=== PATIENT | female | born 1950 | race Caucasian/White ===

== ENCOUNTER 2016-05-09 09:13 | Day surgery (SDC) | payer BC ==
--- NOTE | ~2016-05-09 | OP ---
Record Of Operation [facility] [address] [place]. [address] NAME: DANA PARIKH : 54 STATUS : [facility]#: [id number] AGE: 66 ADM/REG DATE : 05/09/16 MR#: [id number] REPORT SERV DATE: 05/11/16 DICTATED BY: IRIS GUERRERO DATE: 05/11/16 REPORT STATUS : Draft TRANSCRIBED BY: RIDGE DATE: 05/11/16 DATE OF PROCEDURE: 05/09/2016 PREOPERATIVE DIAGNOSIS: Surgical absence of the breast. POSTOPERATIVE DIAGNOSIS: Surgical absence of the breast. PROCEDURE: Bilateral nipple reconstructions. INDICATIONS AND FINDINGS OF THE PROCEDURE: This middle-aged female is status post bilateral breast reconstruction. She is now appropriate for nipple reconstruction. DETAILS OF THE PROCEDURE: The patient was brought to the operating room. After adequate local anesthesia was achieved, she was prepped and draped in the usual sterile fashion for the above-described procedure. Markings were then placed on the chest for nipple reconstructions and incisions were made first on the right. Dissection was carried down sharply through the skin to the level of the underlying fat. Two fatty tab flaps were then created. Hemostasis was obtained at the donor sites. These donor sites were closed with 3-0 Monocryl. The tab flaps were brought into apposition with 3-0 Monocryl. All skin was then closed where necessary with 5-0 fast-absorbing gut. Our attention was then turned contralaterally where a similar procedure was carried out. The two fatty tab flaps were elevated and hemostasis was obtained at the donor sites. The donor sites were closed with 3-0 Monocryl. The fatty tab flaps were brought into apposition with 3-0 Monocryl. The skin was then closed where necessary with 5-0 fast-absorbing gut. She was cleansed with peroxide. Nipple caruso were placed, and she was remanded to the recovery room in stable condition. All sponge and needle counts were correct. DONA/RIDGE Iris Guerrero M.D. / [id number] CC: Chrystal Briceno
[~2016-05-09 09:13] MED LIST: ARMOUR THYRO30 MG PO; AT25 PO; B121000P IM; EFFEXOR XR150 MG PO; HYDROCHLOROT12.5 MG PO; IRON OTC PO; K500 PO; MAGNESIUM OTC PO; PCET PO
== END 2016-05-09 16:25 | disposition home or self-care (01) ==
LOC: SDC 09:13
PROVIDERS: Surgery Surgery of the Hand
PROC: 0HRW07Z Replacement of Right Nipple with Autologous Tissue Substitute, Open Approach (ICD-10-PCS; 2016-05-09)
PROC: 0HRX07Z Replacement of Left Nipple with Autologous Tissue Substitute, Open Approach (ICD-10-PCS; principal; 2016-05-09 11:15)
DX: Z42.1 Encounter for breast reconstruction following mastectomy (principal); Z90.13 Acquired absence of bilateral breasts and nipples; M19.90 Unspecified osteoarthritis, unspecified site; E03.9 Hypothyroidism, unspecified; F32.9 Major depressive disorder, single episode, unspecified; D64.9 Anemia, unspecified; Z98.51 Tubal ligation status; Z90.89 Acquired absence of other organs; Z90.710 Acquired absence of both cervix and uterus; Z98.890 Other specified postprocedural states; Z85.3 Personal history of malignant neoplasm of breast; Z92.21 Personal history of antineoplastic chemotherapy
CPT/HCPCS: J2250; J2405; J3010